=== PATIENT | female | born 1935 | race Caucasian/White ===

== ENCOUNTER 2017-09-10 03:01 | Emergency (ER) | payer MEDICARE, OTHER ==
[~2017-09-10] VITALS: Ht 149.9 cm; Wt 51.3 kg
== END 2017-09-10 05:26 | disposition home or self-care (01) ==
LOC: ED 03:01
DX: R20.2 Paresthesia of skin (principal)
CPT/HCPCS: 70450; 80053; 85025; 99284

== ENCOUNTER 2018-10-15 05:21 | Emergency (ER) | payer MEDICARE, OTHER ==
[~2018-10-15] VITALS: Ht 149.9 cm; Wt 51.3 kg
--- NOTE | 2018-10-15 07:19 | EKG ---
[facility] [address] [facility] [place] [address] Signed Normal sinus rhythm Possible Left atrial enlargement Borderline ECG No previous ECGs available Confirmed by JOYCE NICHOLSON MD ([id number]) on 10/15/2018 7:18:57 AM Electronically Signed By: JOYCE NICHOLSON MD 10/15/18 0719 PATIENT NAME: MACK WEBB Electrocardiogram DATE OF : 33 PHYSICIAN: JOYCE NICHOLSON MD REPORT #: [id number] REPORT IS CONFIDENTIAL AND NOT TO BE RELEASED WITHOUT AUTHORIZATION
== END 2018-10-15 07:15 | disposition home or self-care (01) ==
LOC: ED 05:21
DX: R20.2 Paresthesia of skin (principal)
CPT/HCPCS: 70450; 80053; 84484; 85025; 85610; 85730; 93005; 93010; 99284-25

== ENCOUNTER 2020-11-19 09:56 | Emergency (ER) | payer MEDICARE, OTHER ==
[~2020-11-19] VITALS: Ht 149.9 cm; Wt 51.3 kg
[2020-11-19] MEDS ORDERED: ALENDRONATE SOD70 MG PO (10:24)
--- NOTE | 2020-11-19 13:18 | EKG ---
[facility] [address] [facility] [place], [place] [address] Signed Normal sinus rhythm with sinus arrhythmia Cannot rule out Anterior infarct , age undetermined Abnormal ECG When compared with ECG of 15-OCT-2018 05:31, No significant change was found Confirmed by JOYCE NICHOLSON MD ([id number]) on 11/19/2020 1:17:57 PM Electronically Signed By: JOYCE NICHOLSON MD 11/19/20 1318 PATIENT NAME: MACK WEBB Electrocardiogram DATE OF : 33 PHYSICIAN: JOYCE NICHOLSON MD REPORT #: [id number] REPORT IS CONFIDENTIAL AND NOT TO BE RELEASED WITHOUT AUTHORIZATION
== END 2020-11-19 16:13 | disposition home or self-care (01) ==
LOC: ED 09:56
DX: R55 Syncope and collapse (principal)
CPT/HCPCS: 70450; 70496; 70498; 71275; 74174; 80053; 81001; 83735; 84484; 85025; 87088; 93005; 93010; 99284-25; Q9967

== ENCOUNTER 2022-07-16 08:47 | Emergency (ER) | payer MEDICARE, OTHER ==
[~2022-07-16 08:47] MED LIST: ALENDRONATE SOD70 MG PO
--- NOTE | 2022-07-18 15:58 | EKG ---
[facility] [address] [facility] [place], [place] [address] Signed Sinus tachycardia Otherwise normal ECG No previous ECGs available Confirmed by DUNG ERAZO MD ([id number]) on 07/18/2022 3:57:52 PM Electronically Signed By: DUNG ERAZO MD 07/18/22 1558 PATIENT NAME: MACK WEBB Electrocardiogram DATE OF : 33 PHYSICIAN: DUNG ERAZO MD REPORT #: [id number] REPORT IS CONFIDENTIAL AND NOT TO BE RELEASED WITHOUT AUTHORIZATION
== END 2022-07-16 12:10 | disposition short-term general hospital (02) ==
LOC: ED 08:47
DX: R55 Syncope and collapse (principal); S02.0XXA Fracture of vault of skull, initial encounter for closed fracture; S06.35AA Traumatic hemorrhage of left cerebrum with loss of consciousness status unknown, initial encounter; W18.30XA Fall on same level, unspecified, initial encounter; Z79.899 Other long term (current) drug therapy; Z20.822 Contact with and (suspected) exposure to COVID-19
CPT/HCPCS: 31500; 36415; 70450; 71045; 72125; 80053; 81003; 84484; 85025; 85379; 87502; 94002; 99285-25; C9803; J2250; J2704; J3010; J7030; U0003

== ENCOUNTER 2022-09-01 07:10 | Emergency (ER) | payer MEDICARE, OTHER ==
[~2022-09-01] VITALS: Ht 162.6 cm; Wt 54.0 kg
[2022-09-01] MEDS ORDERED: MIRTAZAPINE7.5 MG PO (08:40)
--- NOTE | 2022-09-01 16:45 | EKG ---
[facility] [address] [facility] [place] [address] Signed Poor data quality Normal sinus rhythm with sinus arrhythmia Low voltage QRS Borderline ECG When compared with ECG of 16-JUL-2022 08:52, No significant change was found Confirmed by DUNG ERAZO MD ([id number]) on 09/01/2022 4:45:04 PM Electronically Signed By: DUNG ERAZO MD 09/01/22 1645 PATIENT NAME: MACK WEBB Electrocardiogram DATE OF : 33 PHYSICIAN: DUNG ERAZO MD REPORT #: [id number] REPORT IS CONFIDENTIAL AND NOT TO BE RELEASED WITHOUT AUTHORIZATION
== END 2022-09-01 12:00 | disposition short-term general hospital (02) ==
LOC: ED 07:10
DX: S06.5XAA Traumatic subdural hemorrhage with loss of consciousness status unknown, initial encounter (principal); W06.XXXA Fall from bed, initial encounter; Z79.899 Other long term (current) drug therapy; Z20.822 Contact with and (suspected) exposure to COVID-19
CPT/HCPCS: 36415; 70450; 70486; 70496; 70498; 71045; 72125; 80053; 81001; 84439; 84443; 84484; 85025; 85610; 85730; 87502; 93005; 93010; 99285-25; C9803; J7030; Q9967; U0003

== ENCOUNTER 2022-09-17 06:27 | Emergency (ER) | payer OTHER, MEDICARE ==
[~2022-09-17] VITALS: Ht 162.6 cm; Wt 54.0 kg
[~2022-09-17 06:27] MED LIST changes: +MIRTAZAPINE7.5 MG PO
--- OUTSIDE RECORDS SUMMARY | 2022-09-17 06:34 | XMS ---
PreManage Notification: MACK WEBB [employer] Events No recent Security Events currently on file CRITERIA MET - [facility] - 2 Visits in 30 Days CARE PROVIDERS KAYCE RIZZO Emergency [facility] Current PHONE: [phone] [place] has no Care Guidelines for this patient. EJenny VISIT COUNT (12 MO.) 2 [facility] and [address] TOTAL 5 NOTE: Visits indicate total known visits. ED/C VISIT TRACKING (12 MO.) 09/17/2022 06:27 [facility] TYPE: Emergency COMPLAINT: - GLF, AMS 09/01/2022 14:30 [facility] TYPE: Emergency DIAGNOSES: 76952. Subdural Hematoma 79813. FALL . Traumatic subdural hemorrhage with loss of consciousness status unknown, initial encounter . Unspecified fall, initial encounter . Injury, unspecified, initial encounter 09/01/2022 07:10 [facility] TYPE: Emergency COMPLAINT: - WEAKNESS DIAGNOSES: - Weakness - Other tapper bit (current) drug therapy - Contact with and (suspected) exposure to COVID-19 - Traumatic subdural hemorrhage with loss of consciousness status unknown, initial encounter - Fall from bed, initial encounter 07/16/2022 14:23 [facility] TYPE: Emergency DIAGNOSES: 02736. GLF - Head Bleed 07/16/2022 08:49 [facility] TYPE: Emergency COMPLAINT: - FALL, ALTERED MENTAL STATUS DIAGNOSES: - Fracture of vault of skull, initial encounter for closed fracture - Fall on same level, unspecified, initial encounter - Syncope and collapse - Contact with and (suspected) exposure to COVID-19 - Traumatic hemorrhage of left cerebrum with loss of consciousness status unknown, initial encounter - Other halfway (current) drug therapy INPATIENT VISIT TRACKING (12 MO.) 09/01/2022 14:30 [facility] TYPE: Surgery DIAGNOSES: 03026. Traumatic subdural hemorrhage with loss of consciousness status unknown, initial encounter . Unspecified fall, initial encounter 95[address]. Injury, unspecified, initial encounter 07/16/2022 14:23 [facility] TYPE: Surgery DIAGNOSES: 23954. Unspecified intracranial injury with loss of consciousness of unspecified duration, initial encounter 97780. Nontraumatic subarachnoid hemorrhage, unspecified . Nontraumatic subarachnoid hemorrhage, unspecified . Fracture of vault of skull, initial encounter for closed fracture . Traumatic subdural hemorrhage with loss of consciousness status unknown, initial encounter [email or web address]
--- NOTE | 2022-09-17 16:16 | EKG ---
[facility] [address] [facility] [place] [address] Signed Sinus rhythm with 1st degree AV block Nonspecific ST abnormality Abnormal ECG When compared with ECG of 01-SEP-2022 08:31, No significant change was found Confirmed by DUNG ERAZO MD ([id number]) on 09/17/2022 4:16:43 PM Electronically Signed By: DUNG ERAZO MD 09/17/22 1616 PATIENT NAME: MACK WEBB Electrocardiogram DATE OF : 33 PHYSICIAN: DUNG ERAZO MD REPORT #: [id number] REPORT IS CONFIDENTIAL AND NOT TO BE RELEASED WITHOUT AUTHORIZATION
== END 2022-09-17 12:45 | disposition home or self-care (01) ==
LOC: ED 06:27
DX: S06.5X9A Traumatic subdural hemorrhage with loss of consciousness of unspecified duration, initial encounter (principal); W01.10XA Fall on same level from slipping, tripping and stumbling with subsequent striking against unspecified object, initial encounter; Z79.899 Other long term (current) drug therapy
CPT/HCPCS: 36415; 70450; 71045; 72125; 80053; 81001; 85025; 93005; 93010; 96374; 99285-25; C9803; G0480; J7168; U0003

== ENCOUNTER 2022-12-07 21:34 | Emergency (ER) | payer OTHER, MEDICARE ==
[~2022-12-07] VITALS: Ht 149.9 cm; Wt 47.6 kg
[2022-12-07] MEDS ORDERED: ATORVASTATIN CA20 MG PO (22:00)
[2022-12-07] MEDS ORDERED: CALCIUM 600-VI1 EAC3 PO (22:01)
[2022-12-07] MEDS ORDERED: TYLENOL EXTRA500 M2 PO (22:02)
[2022-12-07] MEDS ORDERED: LEVETIRACETAM500 MG PO (22:02)
[2022-12-07] MEDS ORDERED: MACROBID 100 M100 MG PO (23:55)
[2022-12-08 00:05] VITALS: BP 142/76
== END 2022-12-08 00:25 | disposition home or self-care (01) ==
LOC: ED 21:34
DX: S01.81XA Laceration without foreign body of other part of head, initial encounter (principal); W01.190A Fall on same level from slipping, tripping and stumbling with subsequent striking against furniture, initial encounter; N39.0 Urinary tract infection, site not specified; Z79.899 Other long term (current) drug therapy
CPT/HCPCS: 36415; 70450; 80053; 81001; 85025; 85610